=== PATIENT | female | born 1950 ===

== ENCOUNTER 2018-03-10 07:50 | Day surgery (SDC) | payer MEDICARE ==
[2018-03-10 08:47] VITALS: BMI 37.1
[2018-03-10] MEDS ORDERED: Lactated Ringer's 1,000 ML IV ONE (08:55)
[2018-03-10] MEDS ORDERED: Propofol 10 mg/ml Inj (20 ML) ONE (09:35)
[2018-03-10 10:32] VITALS: TEMP 97; O2SAT 97
[2018-03-10 10:33] VITALS: BP 133/75; PULSE 80; RESP 15
== END 2018-03-10 13:13 | disposition home or self-care (01) ==
LOC: H.ENDO 07:50 → EDSTATUS 11:15 → H.ENDO 13:13
PROVIDERS: ATTEND Internal Medicine Gastroenterology
DX: K92.2 Gastrointestinal hemorrhage, unspecified (principal); G47.33 Obstructive sleep apnea (adult) (pediatric); E11.9 Type 2 diabetes mellitus without complications; E78.5 Hyperlipidemia, unspecified; I10 Essential (primary) hypertension; K64.8 Other hemorrhoids; K57.30 Diverticulosis of large intestine without perforation or abscess without bleeding
CPT/HCPCS: 45378; 82948; J2001; J2704; J7120